=== PATIENT | female | born 1945 | race Caucasian/White ===

== ENCOUNTER 2017-09-23 07:14 | Day surgery (SDC) | payer MEDICARE, OTHER ==
[~2017-09-23] VITALS: Ht 154.9 cm; Wt 70.0 kg
[2017-09-23] MEDS ORDERED: BUPIVACAINE/PF 0.5% ONE (07:53)
[2017-09-23] MEDS ORDERED: PROTAMINE SULFATE 10 MG/ML, 5ML ONE (07:53)
[2017-09-23] MEDS ORDERED: HEPARIN 1,000 UNITS/ML, 10ML ONE (07:53)
[2017-09-23] MEDS ORDERED: SODIUM CHLORIDE 0.9% 1,000 ML IV SCH (08:16)
[2017-09-23] MEDS ORDERED: LISI40TA PO (08:28)
[2017-09-23] MEDS ORDERED: MAGN400T7 PO (08:28)
[2017-09-23] MEDS ORDERED: CHOL5000 PO (08:28)
[2017-09-23] MEDS ORDERED: [UNRECOGNIZED DRUG - OTHER] PO (08:28)
[2017-09-23] MEDS ORDERED: GABA300C10 PO (08:28)
[2017-09-23] MEDS ORDERED: ALLER TEC PO (08:28)
[2017-09-23] MEDS ORDERED: BUPR150T13 PO (08:28)
[2017-09-23] MEDS ORDERED: AURYXIA PO (08:28)
[2017-09-23] MEDS ORDERED: AMLO5TAB2 PO (08:28)
[2017-09-23] MEDS ORDERED: INSU300I SQ (08:28)
[2017-09-23] MEDS ORDERED: VITAMIN B6 PO (08:28)
[2017-09-23] MEDS ORDERED: CYAN25009 PO (08:28)
[2017-09-23] MEDS ORDERED: SODI650T PO (08:28)
[2017-09-23] MEDS ORDERED: ISON300T4 PO (08:28)
[2017-09-23] MEDS ORDERED: LIDOCAINE 1%, 2ML SQ PRN (08:30)
[2017-09-23] MEDS ORDERED: PLEASE ENTER HEIGHT AND WEIGHT MC SCH (08:30)
[2017-09-23 08:42] VITALS: BP 147/71
[2017-09-23] MEDS ORDERED: MIDAZOLAM 1 MG/ML, 2ML ONE (09:59)
[2017-09-23] MEDS ORDERED: FENTANYL PF 250 MCG/5ML ONE (09:59)
[2017-09-23] MEDS ORDERED: CEFAZOLIN 1,000 MG ONE (10:47)
[2017-09-23] MEDS ORDERED: EPHEDRINE 50 MG/ML, 1ML ONE (10:47)
[2017-09-23] MEDS ORDERED: PROPOFOL 10 MG/ML, 20ML ONE (10:47)
[2017-09-23] MEDS ORDERED: ONDANSETRON 2MG/ML, 2ML ONE (10:47)
[2017-09-23] MEDS ORDERED: ROCURONIUM 10 MG/ML,10ML ONE (10:47)
[2017-09-23] MEDS ORDERED: DEXAMETHASONE 4 MG/ML, 1ML ONE (10:47)
[2017-09-23] MEDS ORDERED: SUCCINYLCHOLINE 20 MG/ML, 10ML ONE (10:47)
[2017-09-23] MEDS ORDERED: OXYcodone 5 MG/5 ML ORAL.SOL UDC PO PRN (11:30)
[2017-09-23] MEDS ORDERED: HYDROmorphone 1 MG/ML, 1ML IV PRN (11:30)
[2017-09-23] MEDS ORDERED: LABETALOL 5MG/ML, 20ML IV PRN (11:30)
[2017-09-23] MEDS ORDERED: HYDROcodone/APAP 7.5-325MG/15ML UDC PO PRN (11:30)
[2017-09-23] MEDS ORDERED: FENTANYL PF 100 MCG/2ML IV PRN (11:30)
[2017-09-23] MEDS ORDERED: ACETAMINOPHEN 325 MG TABLET PO PRN (11:30)
[2017-09-23] MEDS ORDERED: ONDANSETRON 2MG/ML, 2ML IVPush PRN (11:30)
[2017-09-23] MEDS ORDERED: FENTANYL PF 100 MCG/2ML ONE (12:20)
[2017-09-23] MEDS ORDERED: OXYcodone 5 MG/5 ML ORAL.SOL UDC ONE (12:21)
== END 2017-09-23 14:30 ==
LOC: OUT 07:14
PROVIDERS: ATTEND Surgery Vascular Surgery
DX: E11.22 Type 2 diabetes mellitus with diabetic chronic kidney disease (principal); I12.0 Hypertensive chronic kidney disease with stage 5 chronic kidney disease or end stage renal disease; N18.6 End stage renal disease; Z79.4 Long term (current) use of insulin
CPT/HCPCS: 36415; 36821; 49324; 80047; 82962; 93005; C1750; J0330; J0690; J1100; J1644; J2250; J2405; J2704; J2720; J3010; J3490; J7030